=== PATIENT | male | born 1980 | race Two or more races ===

== ENCOUNTER 2024-07-18 11:01 | Emergency (ER) | payer OTHER ==
[~2024-07-18] VITALS: Ht 170.2 cm; Wt 113.6 kg
[2024-07-18 11:11] VITALS: TEMP 98.3
[2024-07-18 11:35] VITALS: BP 122/74; PULSE 65; RESP 20; O2SAT 95
[2024-07-18] MEDS: LIDOCAINE 1% 10 ML VIAL SQ ONE (12:09)
[2024-07-18] MEDS: PERTUSS(ACELL),DIPH,TET/PF 0.5 ML SYRINGE [ADULT] IM. ONE (12:10)
== END 2024-07-18 13:49 | disposition home or self-care (01) ==
LOC: EMS 11:01
DX: S61.412A Laceration without foreign body of left hand, initial encounter (principal); Z98.890 Other specified postprocedural states; W26.0XXA Contact with knife, initial encounter; Y93.89 Activity, other specified; Y92.89 Other specified places as the place of occurrence of the external cause; Y99.8 Other external cause status
CPT/HCPCS: 99283; 90715; 90471; 12001; J3490